=== PATIENT | female | born 1950 | race Caucasian/White ===

== ENCOUNTER 2018-11-10 04:55 | Inpatient (IN) ==
--- NOTE | 2018-10-19 15:24 | Anesthesiology Consultation ---
Date of Service October 19, 2018 Assessment & Plan (1) Encounter for pre-operative examination: Patient is extremely apprehensive regarding spinal anesthesia. She had a traumatic experience with RUL lobectomy in [place] and appears to have significant PTSD from this event. At her [facility] appt we thoroughly discussed both general and neuraxial anesthesia. The patient expressed understanding, and would like to discuss with anesthesia further AM DOS, but will likely opt for general anesthesia. PENDING CHEST CT 11/03 (for abnormal CXR) Chart Review Chart Review: Acceptable Risk for Surgery (pending chest CT 11/03) and Patient seen in Pre Admission Testing Teaching & Discussion Instructed NPO after midnight before surgery, except medications with 15 cc of water. Medication instructions provided according to the [facility] guidelines. History Surgery Operation Date: 11/10/18 12:30 Proposed Procedures p Right Total Hip Arthroplasty - Yevgeniy Ellsworth MD Height/Weight Height: 5 ft 3 in Weight: 66 kg Allergies Allergy/AdvReac Type Severity Reaction Status Date / Time Sulfa (Sulfonamide AdvReac Vomiting Verified 10/19/18 10:38 Antibiotics) Medications Home Medications Medication Instructions Recorded Confirmed Last Taken levothyroxine 50 mcg PO QAM 10/19/18 10/19/18 Unknown Past Medical History Medical History Degenerative joint disease of right hip History of lung cancer DX 2012 - S/P SX, CHEMO/RADIATION Hypothyroidism Recurrent carcinoma of lung 2014--chemo + XRT 2016 --Obdivo x 1 year CURRENTLY IN REMISSION Exercise / Class Metabolic Activity II 4-5 Yardwork/Stairs/Walk up hill (Walks ~ 1 mils daily, has 2 [employer] collies to care for, swims weekly.) Past Surgical History Surgical History History of colonoscopy History of esophagogastroduodenoscopy (EGD) History of tonsillectomy History of tubal ligation Status post bronchoscopy with biopsy Status post partial lobectomy of lung RUL Past Anesthesia History No Hx of Anesthesia Complications Pt had very traumatic experience with epidural for post-op pain control at [place] after lobectomy--she was not aware she would ahve one, and panicked upon waking in ICU unable to feel from chest down. PT CLEARLY VERY ANXIOUS, may have some degree of PTSD regarding the event. History of PONV No Hx of PONV and No Hx of Motion Sickness Social History Smoking Status: Former smoker tobacco type: cigarettes Do You Dip or Chew Tobacco: No Smoking End Date: QUIT 2012 Hx Alcohol Use: No Hx Substance Use: No substance use type: does not use Review of Systems Pt denies any recent chest pain, shortness of breath, palpitations, cough, fever or URI. Physical Exam Vital Signs BP: 144/81 (pt is visibly extremely anxious) P: 67bpm SPO2: 98% RA T: 98.2 F R: 16 Constitutional Extremely anxious and tearful when discussing anesthesia options. ENMT Mouth: + dentures (full upper, partial lower); no chipped teeth and no loose teeth Thyromental Distance: > or= 3.5 Finger Breadths (3.5) Mallampati Class: I Neck normal visual inspection; neck extension not limited Respiratory normal respiratory effort Auscultation: lungs clear to auscultation bilaterally and + breath sounds absent (RUL) Cardiovascular Rate/Rhythm: regular rate and regular rhythm Heart Sounds: no murmur Vessels: no carotid bruit Extremities: no edema Testing Laboratory Results PT 10.6 Seconds (9.0-12.0) 10/19/18 15:45 INR 1.0 (0.9-1.1) 10/19/18 15:45 APTT 27.0 Seconds (21.0-31.0) 10/19/18 15:45 Blood Type O Positive 10/19/18 15:45 Antibody Screen NEGATIVE 10/19/18 15:45 09/21/18 WBC: 7.02 H/H: 13.5/43.9 PLATELETS: 191 SODIUM: 143 POTASSIUM: 4.3 CHLORIDE: 111 CO2: 21 BUN: 24 CREATININE: 1.2 GLUCOSE: 70 Electrocardiogram Date: 10/19/18 Findings: + NSR @ (63) Chest X-Ray Date: 07/23/18 Comparison: CXR 04/17/[address] chest 06/19/18 Stable appearance of the right lung status post right upper lobectomy with unchanged scarring in the right lung. There is an unchanged right suprahilar opacity. Again noted is patchy opacity in the periphery of the right upper lung field. No significant pleural effusion. Cardiomediastinal silhouette is stable and the pulmonary vasculature is within normal limits. No acute osseous finding.
--- NOTE | 2018-10-19 15:35 | PAT Medication Instructions ---
Medication Instructions Date of Service October 19, 2018 Home Medications levothyroxine 50 mcg PO QAM Take morning of surgery With a small sip of water, OTHERWISE NOTHING TO EAT OR DRINK AFTER MIDNIGHT: levothyroxine 50 mcg PO QAM Other Notes If you have any questions please call us at [phone] or [phone] or [phone] or [phone]
[2018-10-19 16:42] LABS: Prothrombin Time 10.6 Seconds (9.0-12.0)
--- NOTE | 2018-11-06 11:26 | History and Physical Report ---
DATE OF ADMISSION: 11/10/2018 CHIEF COMPLAINT: Bilateral hip pain, right side greater than left. HISTORY OF PRESENT ILLNESS: A 68-year-old white female who presents on a referral from my partner, Dr. Nowak, for surgical treatment of her hips. She got a long history of lower extremity pain and discomfort, right side greater than left. No known injury. She saw Dr. Nowak recently who diagnosed her with advanced hip arthritis. She describes thigh pain, groin pain and knee pain. She is having more and more difficulty getting around due to her discomfort. It is affecting her quality of life. Her walking tolerance is a couple of blocks. She has difficulty putting her shoes and socks on and even bending over. She would like to proceed with surgical treatment. PAST MEDICAL HISTORY: Significant for: 1. Hypothyroidism. 2. History of lung cancer, status post treatment x3 without recurrence. PAST SURGICAL HISTORY: Includes: 1. Tonsillectomy. 2. Right partial lung removal in 2012. ALLERGIES: SULFA. CURRENT MEDICATIONS: Levothyroxine 50 mcg a day. SOCIAL HISTORY: A 68-year-old female. She is . She is from [place]. Does not smoke. No significant alcohol intake. FAMILY HISTORY: Noncontributory. REVIEW OF HISTORY: Negative for diabetes, neurologic problem, vascular problem, bleeding disorders. She does have this history of lung cancer, in remission. Denies any current chest pain or shortness of breath. No history of DVT or PE. PHYSICAL EXAMINATION: GENERAL: Shows a pleasant, middle-aged female. Looks to be in good health. HEENT: Benign. NECK: Supple, no lymphadenopathy. LUNGS: Clear to auscultation. HEART: Has regular rate and rhythm. ABDOMEN: Soft, nontender, nondistended. EXTREMITIES: Grossly neurovascularly intact except as follows: Examination of the right leg reveals the patient ambulates with a significantly antalgic gait. She clearly limps on this right side. She is about 1 cm short on the right side compared to the left. Hip motion is limited with internal rotation to neutral, external rotation to 25 degrees. She has got pain with internal rotation. Negative straight leg raise. X-RAYS: X-rays of the pelvis and right hip were reviewed. She has advanced right hip DJD. She has got significant arthritis and deformity of her acetabulum and flattening of her femoral head and subluxation of the femoral head. She got similar, but less severe disease on the left side. X-rays of the right knee reveal fairly mild DJD. ASSESSMENT: A 68-year-old white female with bilateral lower extremity pain with advanced hip arthritis, right side greater than the left. She has become more debilitating and she is having trouble getting around. She would like to proceed with surgical treatment. PLAN: We will take her to the operating room and do a right total hip replacement. The risks and benefits of this procedure were explained to the patient including but not limited to DVT, PE, , infection, neurological injury, vascular injury, bleeding problem, pain, limited range of motion, stiffness, failure to relieve her symptoms, incomplete relief of symptoms, need for further surgery in the future, fracture, leg length inequality, nerve palsy, dislocation, etc. The patient understands and desires to proceed. Informed consent was obtained. We will have to have some special instruments available due to her dysplasia and deformity. We will plan on using the Corail system, but we need to have the DePuy/Tuan and Tuan S-ROM system available in case she has got too advanced dysplasia to use a standard stem. As far as discharge plans, she is planning to be discharged to home. Her creatinine is on the upper level of normal, we will have to be careful with any NSAIDs. As far as discharge plans, she is planning to be discharged to home using [facility] home health program.
[2018-11-10] MEDS ORDERED: CEFAZOLIN 2000MG 2,000 MG/15 ML SYR IV SCH (06:00)
[2018-11-10] MEDS ORDERED: TRANEXAMIC ACID 1,000 MG **IV Pre-op IV SCH (06:00)
[2018-11-10] MEDS ORDERED: LR 60ML/HR IV SCH (06:00)
[2018-11-10] MEDS ORDERED: ACETAMINOPHEN 500 MG TAB PO SCH (06:00)
[2018-11-10] MEDS ORDERED: SCOPOLAMINE 1.5 MG TDSY TD SCH (06:00)
[2018-11-10] MEDS ORDERED: GABAPENTIN 300 MG CAP PO SCH (06:00)
[2018-11-10] MEDS ORDERED: FAMOTIDINE 20 MG TAB PO SCH (06:00)
[2018-11-10] MEDS ORDERED: LR 15ML/HR IV SCH (06:00)
[2018-11-10] MEDS ORDERED: METOCLOPRAMIDE HCL 10 MG TABLET PO SCH (06:00)
[2018-11-10] MEDS ORDERED: MIDAZOLAM HCL 1 MG/ML 2ML VIAL ONE (06:19)
[2018-11-10] MEDS ORDERED: fentaNYL citrate 100 MCG/2 ML VIAL ONE (06:20)
[2018-11-10] MEDS ORDERED: ONDANSETRON INJ 2 MG/ML 2 ML VIAL ONE (06:23)
[2018-11-10] MEDS ORDERED: PROPOFOL IV EMULSION 10 MG/ML 20 ML VIAL IV ONE ×2 (06:23→10:50)
[2018-11-10] MEDS ORDERED: BUPIVACAINE 0.5 % 5 MG/1 ML PF 10ML VIAL ONE (06:34)
[2018-11-10] MEDS ORDERED: BACITRACIN INJ 50,000 UNIT VIAL ONE (06:47)
[2018-11-10] MEDS ORDERED: BUPIVACAINE/EPINEPHRINE 0.5% MPF 1:200,000 30 ML VIAL ONE (06:47)
--- NOTE | 2018-11-10 06:54 | History & Physical Bridge Note ---
Date of Service November 10, 2018 History & Physical Bridge Note I have examined the patient, reviewed the History & Physical and in the interval since the performance of the History & Physical I have noted the following changes of clinical significance: no changes noted
[2018-11-10] MEDS ORDERED: ePHEDrine sulfate 50 MG/ML AMP IV PRN (08:07)
[2018-11-10] MEDS ORDERED: ATROPINE SULFATE 0.1 MG/ML 10ML SYR IV PRN (08:07)
[2018-11-10] MEDS ORDERED: fentaNYL citrate 100 MCG/2 ML VIAL IV PRN (08:07)
[2018-11-10] MEDS ORDERED: ONDANSETRON INJ 2 MG/ML 2 ML VIAL IV PRN ×2 (08:07→09:42)
--- NOTE | 2018-11-10 08:31 | Post Operative Brief Note ---
PG Immediate Post Op with CF Date of Surgery November 10, 2018 Pre & Post Diagnosis Operation Date: 11/10/18 07:00 Pre-Op Diagnosis: Right Hip Advanced Degenerative Joint Disease Post-Op Diagnosis: Right Hip Advanced Degenerative Joint Disease Procedure Operation Date: 11/10/18 07:00 Actual Procedures p Right Total Hip Arthroplasty--Uncemented(Right) - Yevgeniy Ellsworth MD Surgeon Yevgeniy Ellsworth MD Distribution Sales Representative Ronald, PAC Estimated Blood Loss 200 Findings Consistent with Post-Op Diagnosis Fluids 1400 cc Specimens Specimen Description: A. Right Femoral Head Drains Perez Catheter (A 16 [place] perez catheter was inserted by MICAH Nugent, without difficulty, clear yellow urine obtained, output to be monitored by Anesthesia.) Anesthesia Type Spinal MAC Complications none Disposition Accompanied Patient To Recovery: Yes Disposition: Recovery Room
--- NOTE | 2018-11-10 08:58 | XRay Report ---
XR hip 1V RT w pelvis CLINICAL HISTORY: 68 years-old Female presenting with IN PACU - A/P PELVIS and LATERAL HIP . TECHNIQUE: Single frontal view of the pelvis and crosstable lateral view of the right hip were obtain ed. COMPARISON: 10/14/2018. FINDINGS: There has been interval total right hip arthroplasty. Expected soft tissue emphysema with overlying s kin anjelica in the lateral proximal right thigh. Severe degenerative changes of the left hip, which r emains congruent. The bony pelvis is intact apart from postsurgical change. No periprosthetic fractur e or malalignment. Possible underlying osteopenia. Atherosclerosis. IMPRESSION: 1. Expected postsurgical appearance status post total right hip arthroplasty. 2. Severe degenerative changes of the left hip. Electronically signed by: Rajendra Munoz M.D. 11/10/2018 8:57 AM
--- NOTE | 2018-11-10 09:29 | Operative Report ---
DATE OF OPERATION: 11/10/2018 SURGEON: Yevgeniy Ellsworth MD BURLAPPER: MICAH Ca PREOPERATIVE DIAGNOSIS: Right hip degenerative joint disease. POSTOPERATIVE DIAGNOSIS: Right hip degenerative joint disease. PROCEDURE PERFORMED: Right uncemented ceramic on highly cross-linked polyethylene total hip arthroplasty. COMPLICATIONS: None. ESTIMATED BLOOD LOSS: 200 mL FLUID REPLACEMENT: 1400 mL crystalloid fluid replacement. ANESTHESIA: Spinal. DRAINS: None. SPECIMENS: Right femoral head sent for pathology. OPERATIVE INDICATIONS: The patient is a 68-year-old female with a significant history of lung cancer in the past, now in remission. She had a long history of bilateral lower extremity pain and discomfort, right side greater than left. She has been through extensive conservative care and over time has shown to have severe hip arthritis. It was markedly limiting her ability to maintain any active lifestyle. She elected to proceed with total hip arthroplasty. OPERATIVE FINDINGS: Operative findings revealed advanced right hip DJD. She had extensive erosive and degenerative and destructive changes of her femoral head. She had a large medial osteophyte. She had extensive synovitis and cystic changes of the femoral head and acetabulum. OPERATIVE IMPLANTS: Operative implants consisted of: 1. Biomet G7 size 54 mm acetabular shell. 2. A 6.5 cancellous acetabular screws, 1 at 35 mm in length and 1 at 20 mm in length. 3. An apex hole eliminator. 4. A highly cross-linked polyethylene liner with a 54 mm outer diameter and 36 mm inner diameter. 5. DePuy Corail size 11 KLA femoral stem. 6. A +1.5/36 mm ceramic articular ball. OPERATIVE PROCEDURE: The patient was taken to the operating room, identified and placed on the operating table in supine position. All contact areas were appropriately padded. IV antibiotics were provided by anesthesia team. Spinal anesthetic had been implemented in the holding area. Jules catheter was placed in sterile fashion. The patient was then placed in the left lateral decubitus position. Axillary roll was placed. Stlberg hip positioner was used for positioning. The right hip and leg were then prepped and draped in the usual sterile fashion. A posterolateral approach to the right hip was then performed through a curvilinear incision centered over the greater trochanter. Sharp dissection was carried out through the subcutaneous tissue down to the level of the IT band and gluteal fascia. The IT band and gluteal fascia were incised longitudinally in line with skin incision. The underlying greater trochanteric bursa was excised. The piriformis and external rotators were tagged and taken off the posterior aspect of the hip joint capsule. Great care was taken throughout the procedure to protect the sciatic nerve at all times. Posterior capsulotomy was then performed leaving a large flap for later repair. Hip was internally rotated and dislocated. Femoral neck osteotomy cut was made with a final cut about 5 mm above the lesser trochanter. Femoral head was removed and sent for pathology. The femur was retracted anteriorly. Attention was then drawn to the acetabulum. The acetabulum labrum was excised. I then had to remove the medial osteophyte. I then reamed beginning with a size 47 progressing up to 53. A 54 mm Biomet G7 acetabular shell was then placed in about 40 degrees of lateral opening and 20-25 degrees of anteversion. It was fixed with two 6.5 cancellous acetabular screws. A large anterior osteophyte was removed. I did bone graft the acetabulum as she had quite a bit of cyst in there. We did curette out the cyst and bone grafted it with the reamings. A trial liner was placed. Attention was then drawn to the femur. The proximal femur was entered with a cookie cutter followed by canal finder. I broached beginning with a size 8 and progressing up to 11. We got good fit with 11. A calcar reamer was used to smoothen off the calcar. I then trialed the hip and the +1.5 articular ball seemed to recreate soft tissue tension appropriately. The hip was fully stable in full extension and external rotation and flexion to 90 degrees, internal rotation to over [address] We elected to place these implants. I thought her leg lengths were equal. All trial implants were removed. An apex hole eliminator was placed. A highly cross-linked polyethylene liner was placed. A DePuy Corail size 11 KLA femoral stem was impacted in position. A +1.5/36 mm ceramic articular ball was placed. Hip was located and once again found to be stable. Attention was then drawn toward closing. The wound was irrigated with copious amounts of pulsatile lavage solution. I injected locally with 60 mL of 0.5% Marcaine with epinephrine. The posterior capsule and external rotators were then repaired through drill holes in the posterior trochanter with #2 Ti-Cron suture. The IT band and gluteal fascia were then closed with #1 PDS suture in running fashion. The subcutaneous tissue was then closed with 2 layers with the deep layer with #1 Vicryl suture and subcutaneous tissue with 2-0 Dexon suture in a buried interrupted fashion. The skin was closed with skin anjelica. Leg was then cleaned, dried and a sterile dressing of Xeroform, 4 x 4, sterile ABD pad, and foam tape was applied. The patient was then transferred to the recovery room in stable condition. The patient tolerated the procedure well with no complication. All needle and sponge counts were correct at the end of the operation. I attest to the content of the Intraoperative Record and any orders documented therein. Any exception s are noted below.
[2018-11-10] MEDS ORDERED: ALUMINUM/MAGNESIUM SUSP 30 ML UDC PO PRN (09:42)
[2018-11-10] MEDS ORDERED: TRAMADOL HCL 50 MG TABLET PO PRN (09:42)
[2018-11-10] MEDS ORDERED: BISACODYL 10 MG SUPP PR PRN (09:42)
[2018-11-10] MEDS ORDERED: METOCLOPRAMIDE HCL INJ 5 MG/ML 2 ML VIAL IV PRN (09:42)
[2018-11-10] MEDS ORDERED: NALOXONE HCL 0.4 MG/1 ML VIAL/CARP IV PRN (09:42)
[2018-11-10] MEDS ORDERED: MAGNESIUM HYDROXIDE SUSP 30 ML UDC PO PRN (09:42)
[2018-11-10] MEDS ORDERED: HYDROmorphone INJ 0.5 MG/0.5 ML SYR IV PRN (09:42)
--- NOTE | 2018-11-10 10:42 | Anesthesiology Progress Note ---
Date of Service November 10, 2018 Anesthesia Post Procedure Vital Signs Vital Signs: Temp Pulse Pulse Resp BP BP Pulse Ox 11/10/18 10:33 36.9 C 81 18 109/68 97 11/10/18 10:03 18 117/73 11/10/18 09:20 75 12 119/68 97 11/10/18 09:10 36.4 C L 77 15 120/65 98 11/10/18 09:00 89 20 121/40 L 95 11/10/18 08:50 85 18 100/87 99 11/10/18 08:40 74 15 121/57 L 100 11/10/18 08:33 36.4 C L 79 15 114/62 100 11/10/18 05:54 37 C 80 20 123/87 100 Pain Intensity Right Hip: Pain Intensity: 7 Transfer of Care Handoff Completed per policy Notes Mental Status: alert / awake / arousable and participated in evaluation Patient Amnestic to Procedure: Yes Nausea / Vomiting: adequately controlled Pain: adequately controlled Airway Patency, RR, SpO2: stable & adequate BP & HR: stable & adequate Hydration State: stable & adequate Neuraxial Anesthesia: was administered and sensory block is resolving Anesthetic Complications: no major complications apparent and Pt Satisfied with anesthetic care
[2018-11-10] MEDS: DOCUSATE SODIUM 100 MG CAP PO SCH ×2 (11:18→22:00)
[2018-11-10] MEDS: KETOROLAC TROMETHAMINE 15 MG/ML VIAL IV SCH ×2 (11:19→18:30)
[2018-11-10] MEDS: ASPIRIN 81 MG ECTAB PO SCH ×2 (11:19→22:00)
[2018-11-10] MEDS: MULTIVITAMIN TAB PO SCH (11:19)
[2018-11-10] MEDS: CEFAZOLIN 1000MG 1,000 MG/7.5 ML SYR IV SCH ×2 (14:23→22:01)
[2018-11-10] MEDS: ACETAMINOPHEN 500 MG TAB PO SCH ×2 (14:23→21:58)
[2018-11-10] MEDS: SODIUM CHLORIDE 0.9% 1000ML 1,000 ML IV SCH (14:26)
[2018-11-10] MEDS ORDERED: TRANEXAMIC ACID 1,000 MG in 0.9 % SODIUM CHLORIDE 100 ML IV SCH (14:30)
[2018-11-10] MEDS: CHECK SCOPOLAMINE PATCH PLACEMENT SCH (15:40)
[2018-11-10] MEDS: FERROUS GLUCONATE 324 MG TAB PO SCH (18:30)
[2018-11-10] MEDS: ASCORBIC ACID 500 MG TAB PO SCH (18:31)
--- NOTE | 2018-11-10 19:12 | Progress Note ---
DATE: 11/10/2018 SUBJECTIVE: A 68-year-old white female postop from a right hip replacement. She is doing well. Not really having any pain yet. No chest pain or shortness of breath. Not feeling dizzy or lightheaded. OBJECTIVE: VITAL SIGNS: Temperature 36.6. Vital signs stable. GENERAL: Shows a pleasant, middle-aged female. She is sitting up in her bedside chair, looks comfortable. LUNGS: Clear to auscultation. HEART: Regular rate and rhythm. ABDOMEN: Soft, nontender, nondistended. EXTREMITIES: Grossly neurovascularly intact except as follows: Examination of the right lower extremity reveals the leg lengths to be equal. Dressing is clean, dry and intact. Thigh is soft and supple. She is neurologically intact. She can dorsiflex and plantarflex her foot appropriately. X-RAYS: X-rays of the right hip from recovery room were reviewed. It shows right uncemented total hip replacement. Components looked to be in good position. No signs of problems. ASSESSMENT: A 68-year-old white female postoperative from a right hip replacement, doing well. Pain is controlled. Hip is located. She is neurologically intact. PLAN: 1. DVT prophylaxis including thigh-high TEDs, SCDs, and aspirin twice a day. 2. PT/OT. Weight bear as tolerated. Right total hip protocol. 3. Pain control, doing well with current pain regimen. 4. IV antibiotics x24 hours. 5. Disposition: She is planning to be discharged to home likely with some home health once adequately recovered and medically stable.
[2018-11-10] MEDS ORDERED: SENNA 8.6 MG TAB PO SCH (21:00)
[2018-11-11] MEDS: KETOROLAC TROMETHAMINE 15 MG/ML VIAL IV SCH ×3 (00:04→11:42)
[2018-11-11] MEDS: CHECK SCOPOLAMINE PATCH PLACEMENT SCH (00:05)
[2018-11-11] MEDS: SODIUM CHLORIDE 0.9% 1000ML 1,000 ML IV SCH ×2 (00:12→05:46)
[2018-11-11] MEDS: ACETAMINOPHEN 500 MG TAB PO SCH ×2 (05:41→13:09)
[2018-11-11 06:27] LABS: Basophils # (auto) 0.02 K/uL (0-0.2); Basophils % (auto) 0.3 %; Eosinophils # (auto) 0.09 K/uL (0-0.5); Eosinophils % (auto) 1.1 %; Hematocrit (blood only) 32.1 % (37-47); Hemoglobin 10.5 g/dL (12.0-16.0); Immature Granulocytes # (auto) 0.01 K/uL (0.00-0.02); Immature Granulocytes % (auto) 0.1 %; Lymphocytes # (auto) 0.85 K/uL (1.2-3.4); Lymphocytes % (auto) 10.7 %; Mean Corpuscular Hgb Conc 32.7 g/dL (32-36); Mean Corpuscular Volume 88.4 fL (80-100); Mean Platelet Volume 9.4 fL (7.4-10.4); Monocytes # (auto) 0.85 K/uL (0.11-0.59); Monocytes % (auto) 10.7 %; Neutrophils # (auto) 6.14 K/uL (1.4-6.5); Neutrophils % (auto) 77.1 %; Platelet Count 149 K/uL (130-400); RDW Coefficient of Variation 14.3 % (11.5-14.5); RDW Standard Deviation 46.5 fL (36.4-46.3); Red Blood Count 3.63 M/uL (4.2-5.4); White Blood Count 7.96 K/uL (4.8-10.8)
[2018-11-11] MEDS ORDERED: LEVOTHYROXINE SODIUM 50 MCG TABLET PO SCH (06:30)
[2018-11-11 07:04] LABS: BUN Creatinine Ratio 14.5 (10-20); Calcium 8.4 mg/dl (8.5-10.1); Creatinine Clr Calc Pharmacy 37.3 ml/min; Est GFR (African American) 48.4; Est GFR (Non-African American) 41.7; Potassium 4.1 mmol/L (3.5-5.1)
--- NOTE | 2018-11-11 07:30 | Anesthesiology Progress Note ---
Date of Service November 11, 2018 Anesthesia Post Procedure Vital Signs Vital Signs: Temp Pulse Pulse Resp BP BP Pulse Ox 11/11/18 07:28 37.3 C 86 18 106/68 96 11/11/18 03:46 36.9 C 78 16 109/68 97 11/10/18 22:44 37.0 C 82 16 118/74 96 11/10/18 14:58 36.6 C 76 17 134/83 98 11/10/18 12:30 74 18 133/79 100 11/10/18 11:27 36.3 C L 78 16 146/74 H 98 11/10/18 10:33 36.9 C 81 18 109/68 97 11/10/18 10:03 18 117/73 11/10/18 09:30 36.6 C 76 18 105/69 92 11/10/18 09:20 75 12 119/68 97 11/10/18 09:10 36.4 C L 77 15 120/65 98 11/10/18 09:00 89 20 121/40 L 95 11/10/18 08:50 85 18 100/87 99 11/10/18 08:40 74 15 121/57 L 100 11/10/18 08:33 36.4 C L 79 15 114/62 100 Pain Intensity Right Hip: Pain Intensity: 0 Notes Mental Status: alert / awake / arousable and participated in evaluation Patient Amnestic to Procedure: Yes Nausea / Vomiting: adequately controlled Pain: adequately controlled Airway Patency, RR, SpO2: stable & adequate BP & HR: stable & adequate Hydration State: stable & adequate Neuraxial Anesthesia: was administered and sensory block resolved Anesthetic Complications: no major complications apparent and Pt Satisfied with anesthetic care
[2018-11-11] MEDS: MULTIVITAMIN TAB PO SCH (08:43)
[2018-11-11] MEDS: ASPIRIN 81 MG ECTAB PO SCH (08:43)
[2018-11-11] MEDS: ASCORBIC ACID 500 MG TAB PO SCH (08:43)
[2018-11-11] MEDS: DOCUSATE SODIUM 100 MG CAP PO SCH (08:44)
[2018-11-11] MEDS: FERROUS GLUCONATE 324 MG TAB PO SCH (08:44)
--- NOTE | 2018-11-11 15:21 | Progress Note ---
DATE: 11/11/2018 SUBJECTIVE: A 68-year-old white female postop day 1 from right hip replacement. She is doing well. Pain is controlled. No chest pain or shortness of breath. She is really adamant about going home. OBJECTIVE: VITAL SIGNS: Temperature 37.3. Vital signs stable. GENERAL: Physical examination shows a pleasant, middle-aged female. She is sitting up at her bedside chair, looks comfortable. EXTREMITIES: Examination of the right hip reveals the dressing to be clean, dry and intact. Leg lengths were equal. She can dorsiflex and plantarflex her foot appropriately. She is neurologically intact. LABORATORY DATA: Hemoglobin 10.5, hematocrit 32.1. Electrolytes are stable. ASSESSMENT: A 68-year-old white female postop day 1 from a right hip replacement, doing well. Pain is controlled. She is neurologically intact. PLAN: 1. DVT prophylaxis including thigh-high TEDs, SCDs, and aspirin twice a day. 2. PT/OT. Weight bear as tolerated. Right total hip protocol. 3. Pain control, doing well with current pain regimen. 4. Disposition: She is doing quite well clinically and pain is controlled. She is hoping to go home and she does well in therapy today. We will send her home. She is going to have home health. I will see her back in 2 weeks.
--- NOTE | 2018-11-16 23:32 | Discharge Summary ---
ADMITTING PHYSICIAN AND SURGEON: Dr. Yevgeniy Ellsworth. ADMITTING DIAGNOSIS: Right hip degenerative joint disease. SURGERY PERFORMED: Right total hip arthroplasty. SECONDARY DIAGNOSES: Hypothyroidism, history of lung cancer. CONSULTS: None obtained. HISTORY AND PHYSICAL EXAMINATION: Well documented in the patient's chart. HOSPITAL COURSE: The patient was admitted on 11/10/2018 and underwent total hip arthroplasty, tolerated the procedure well. There were no complications. She was transferred to the PACU postoperatively and later to the orthopedic floor for further care. She was given Ancef for antibiotic prophylaxis, MED stockings, SCDs and aspirin for DVT prophylaxis. Hemoglobin, hematocrit and vital signs were monitored during her hospital stay and remained stable. She did not require any blood transfusions. There were no complications. By postoperative day #1, she was tolerating a regular diet, pain was controlled with oral pain medicine. She was participating in physical therapy. Postop day #1, she was discharged home, set up with home health services. She was given printed discharge instructions as well as new prescriptions for extra strength Tylenol, aspirin and tramadol. Continue her home medicines. Continue physical therapy, weightbearing as tolerated, MED stockings, total hip precautions. Follow up approximately 2 weeks postop or sooner if there are any problems or concerns.
== END 2018-11-11 13:23 | disposition home health service (06) | DRG 470 ==
LOC: ASU 04:55 → 3E 08:34

== ENCOUNTER 2019-11-16 05:02 | Observation (INO) ==
--- NOTE | 2019-11-10 12:36 | PAT Medication Instructions ---
Medication Instructions Date of Service November 10, 2019 Home Medications Medication Instructions Recorded amoxicillin 500 mg tablet 2,000 mg PO ONCE #4 tab 09/28/19 levothyroxine 50 mcg PO QAM Take morning of surgery With a small sip of water, OTHERWISE NOTHING TO EAT OR DRINK AFTER MIDNIGHT: levothyroxine 50 mcg PO QAM Other Notes If you have any questions please call us at [phone] or [phone] or [phone] or [phone]
--- NOTE | 2019-11-11 09:28 | Anesthesiology Consultation ---
Date of Service November 11, 2019 Assessment & Plan (1) Encounter for pre-operative examination: COVID Status: As of 11/10 assessment, patient denies travel to endemic area, known exposure/sick contacts, or symptoms of COVID19. Patient instructed that they and their household members must follow strict social distancing guidelines, wear a mask in public and avoid travel for 14 days prior to surgery. Preoperative COVID19 testing completed 11/10, results NEGATIVE. Patient made awar e to self-isolate as much as possible between COVID testing and surgery. Chart Review Chart Review: Acceptable Risk for Surgery and Patient seen in Pre Admission Testing Teaching & Discussion Instructed NPO after midnight before surgery, except medications with 15 cc of water. Medication instructions provided according to the PAT guidelines. History Surgery Operation Date: 11/16/19 07:00 Proposed Procedures p Left Total Hip Arthroplasty - Yevgeniy Ellsworth MD Height/Weight Height: 5 ft 3 in Weight: 69.9 kg Allergies Allergy/AdvReac Type Severity Reaction Status Date / Time Sulfa (Sulfonamide Allergy Intermediate PROJECTIVE Verified 11/10/19 11:29 Antibiotics) VOMITTING AND RASH Medications Home Medications Medication Instructions Recorded Confirmed Last Taken levothyroxine 50 mcg PO QAM 10/19/18 11/10/19 11/10/18 04:00 amoxicillin 500 mg tablet 2,000 mg PO ONCE #4 tab 09/28/19 11/10/19 Unknown Past Medical History Medical History Degenerative joint disease History of lung cancer DX 2012 - S/P SX, CHEMO/RADIATION Hypothyroidism Recurrent carcinoma of lung 2014--chemo + XRT 2016 --Obdivo x 1 year CURRENTLY IN REMISSION Exercise / Class Metabolic Activity III < 4 Walking/Shop/Light housework (Some RAMSAY with 1 FOS due to lung cancer hx, denies any CP, uses cane for ambulation) Past Family History Family History (Updated 11/10/19 @ 11:35 by Melia Madrid RN) Other No significant family history Past Surgical History Surgical History H/O needle biopsy LUNG BIOPSY History of anesthesia reaction DELAYED MOVEMENT WITH EPIDURAL USED WITH LOBECTOMY History of colonoscopy History of esophagogastroduodenoscopy (EGD) History of tonsillectomy History of tooth extraction History of total hip arthroplasty RT History of tubal ligation Status post bronchoscopy with biopsy Status post partial lobectomy of lung RUL 2013 Past Anesthesia History No Family Hx of Anesthesia Complications and Other Reports she had an epidural for her lobectomy at [facility] and was terrified on w aking and not being able to move her legs. No issue with SAB for R DIXIE. History of PONV No Hx of PONV and No Hx of Motion Sickness Social History Smoking Status: Former smoker tobacco type: cigarettes Do You Dip or Chew Tobacco: No Smoking End Date: 2012 Hx Alcohol Use: No Hx Substance Use: No substance use type: does not use Review of Systems Pt denies any recent chest pain, shortness of breath, palpitations, cough, fever, URI, or uncontrolled acid reflux. Physical Exam Vital Signs BP: 149/73 P: 73bpm SPO2: 97% RA T: 97.7 F R: 14 ENMT Mouth: + dentures (full upper, partial lower); no chipped teeth and no loose teeth Thyromental Distance: > or= 3.5 Finger Breadths Mallampati Class: I Neck normal visual inspection; neck extension not limited Respiratory normal respiratory effort Auscultation: lungs clear to auscultation bilaterally Cardiovascular Rate/Rhythm: regular rate and regular rhythm Heart Sounds: no murmur Vessels: no carotid bruit Extremities: no edema Testing Laboratory Results 11/11/19 08:35 PT 10.7 Seconds (9.0-12.0) 11/11/19 08:35 INR 1.0 (0.9-1.1) 11/11/19 08:35 APTT 29.6 Seconds (21.0-31.0) 11/11/19 08:35 Blood Type O Positive 11/11/19 08:35 Antibody Screen NEGATIVE 11/11/19 08:35 10/29/19 WBC: 6.34 H/H: 12.7/40.1 PLATELETS: 200 Electrocardiogram Date: 11/11/19 Findings: + NSR @ (76bpm) Chest X-Ray Date: 11/11/19 COMPARISON STUDY: No previous studies for comparison. FINDINGS: Possible stress study to interpret the absence of prior images. Extensive parenchymal scarring right apex possibly on a postoperative basis. There is a history of a right upper lobectomy. Increased density right base nonspecific. This may be inflammatory and are nonspecific although a consolidation. Nodularity throughout the left hemithorax possibly on the basis of metastatic change versus chronic change. IMPRESSION: 1. Diffuse changes throughout both hemithoraces. This appears to be a comb ination of postoperative change, scarring, and possibly inflammatory or chronic scarring. Old films are considered mandatory as follow-up. *Radiologist notified that patient follows with [facility] and many old films can be obtained from their records. Lungs were CTA B/L on exam at [facility], pt had no acute complaints.
--- NOTE | 2019-11-11 10:29 | XRay Report ---
XR chest Pre-admission PA/Lat CLINICAL HISTORY: pat preoperative COMPARISON STUDY: No previous studies for comparison. FINDINGS: Possible stress study to interpret the absence of prior images. Extensive parenchymal scarring right apex possibly on a postoperative basis. There is a history of a right upper lobectomy. Increased density right base nonspecific. This may be inflammatory and are nonspecific although a con solidation. Nodularity throughout the left hemithorax possibly on the basis of metastatic change versus chronic c hange. IMPRESSION: 1. Diffuse changes throughout both hemithoraces. This appears to be a combination of postoperative ch dayo, scarring, and possibly inflammatory or chronic scarring. Old films are considered mandatory as follow-up. ACT 112: Negative or not required by law. The above report was generated using voice recognition software. It may contain grammatical, syntax or spelling errors. Electronically signed by: Eze Dumas M.D. 11/11/2019 10:27 AM
[2019-11-11 10:33] LABS: Partial Thromboplastin Ratio 1.1; Partial Thromboplastin Time 29.6 Seconds (21.0-31.0); Prothrombin Time 10.7 Seconds (9.0-12.0)
[2019-11-11 11:02] LABS: BUN Creatinine Ratio 16.9 (10-20); C Reactive Protein 2.08 mg/dl (0-0.29); Creatinine Clr Calc Pharmacy 43.3 ml/min; Est GFR (African American) 56.2; Est GFR (Non-African American) 48.5; Potassium 4.7 mmol/L (3.5-5.1)
--- NOTE | 2019-11-12 06:24 | Electrocardiogram Report ---
Test Reason : Blood Pressure : / mmHG Vent. Rate : 076 BPM Atrial Rate : 076 BPM P-R Int : 196 ms QRS Dur : 084 ms QT Int : 360 ms P-R-T Axes : 069 039 067 degrees QTc Int : 405 ms Normal sinus rhythm Normal ECG When compared with ECG of 19-OCT-2018 15:43, No significant change was found Confirmed by Maury Arrieta ([id number]) on 11/12/2019 6:24:34 AM Referred By: Yevgeniy Ellsworth Confirmed By:Maury Arrieta
[2019-11-16] MEDS ORDERED: METOCLOPRAMIDE HCL 10 MG TABLET PO SCH (06:00)
[2019-11-16] MEDS ORDERED: LR 60ML/HR IV SCH (06:00)
[2019-11-16] MEDS ORDERED: TRANEXAMIC ACID 1,000 MG **IV Pre-op IV SCH (06:00)
[2019-11-16] MEDS ORDERED: GABAPENTIN 300 MG CAP PO SCH (06:00)
[2019-11-16] MEDS ORDERED: FAMOTIDINE 20 MG TAB PO SCH (06:00)
[2019-11-16] MEDS ORDERED: ACETAMINOPHEN 500 MG TAB PO SCH (06:00)
[2019-11-16] MEDS ORDERED: CEFAZOLIN 2000MG 2,000 MG/15 ML SYR IV SCH (06:00)
[2019-11-16] MEDS ORDERED: LR 500ML BOLUS, THEN 15ML/HR IV SCH (06:00)
[2019-11-16] MEDS ORDERED: PROPOFOL IV EMULSION 10 MG/ML 20 ML VIAL IV ONE ×2 (06:22→07:44)
[2019-11-16] MEDS ORDERED: MoRPHine SULFATE PF 1 MG/ML 10 ML AMP/VIAL ONE (06:22)
[2019-11-16] MEDS ORDERED: MIDAZOLAM HCL 1 MG/ML 2ML VIAL ONE (06:22)
[2019-11-16] MEDS ORDERED: fentaNYL citrate 100 MCG/2 ML VIAL ONE (06:22)
[2019-11-16] MEDS ORDERED: BUPIVACAINE 0.5 % 5 MG/1 ML MPF 30ML VIAL ONE (06:27)
[2019-11-16] MEDS ORDERED: BACITRACIN INJ 50,000 UNIT VIAL ONE (06:27)
[2019-11-16] MEDS ORDERED: EPINEPHrine INJ 1 MG/ML AMP ONE (06:28)
[2019-11-16] MEDS ORDERED: BUPIVACAINE 0.5 % 5 MG/1 ML PF 10ML VIAL ONE (06:32)
--- NOTE | 2019-11-16 06:48 | History & Physical Bridge Note ---
Date of Service November 16, 2019 History & Physical Bridge Note I have examined the patient, reviewed the History & Physical and in the interval since the performance of the History & Physical I have noted the following changes of clinical significance: no changes noted
[2019-11-16] MEDS ORDERED: ePHEDrine sulfate 50 MG/ML SYR ONE (07:09)
[2019-11-16] MEDS ORDERED: PHENYLEPHRINE 100MCG/ML 5ML SYR ONE (07:09)
[2019-11-16] MEDS ORDERED: NALOXONE HCL 0.4 MG/1 ML VIAL/CARP IV PRN ×2 (08:26→11:00)
[2019-11-16] MEDS ORDERED: ONDANSETRON INJ 2 MG/ML 2 ML VIAL IV PRN ×2 (08:26→11:00)
[2019-11-16] MEDS ORDERED: PROMETHAZINE HCL 25 MG in SODIUM CHLORIDE 0.9% 50 ML IV PRN (08:26)
[2019-11-16] MEDS ORDERED: ATROPINE SULFATE 0.1 MG/ML 10ML SYR IV PRN (08:26)
[2019-11-16] MEDS ORDERED: MoRPHine SULFATE PF 1 MG/ML 10 ML AMP/VIAL INT SPINAL ONE (08:26)
[2019-11-16] MEDS ORDERED: LACTATED RINGER'S 500 ML IV PRN (08:26)
[2019-11-16] MEDS ORDERED: NALOXONE HCL 1 MG in SODIUM CHLORIDE 0.9% 1000ML 1,000 ML IV PRN (08:26)
[2019-11-16] MEDS ORDERED: DiphenhydrAMINE HCL 50 MG/ML VIAL IV PRN (08:26)
[2019-11-16] MEDS ORDERED: ePHEDrine sulfate 50 MG/ML AMP IV PRN ×2 (08:26)
[2019-11-16] MEDS ORDERED: NALOXONE HCL 0.08 MG in SYRINGE 1.8 ML IV PRN (08:26)
[2019-11-16] MEDS ORDERED: SODIUM CHLORIDE 0.9% 1000ML 1,000 ML IV SCH (08:30)
[2019-11-16] MEDS ORDERED: NO NARCOTICS OR SEDATIVES SCH (08:30)
--- NOTE | 2019-11-16 08:40 | Post Operative Brief Note ---
PG Immediate Post Op with CF Date of Surgery November 16, 2019 Pre & Post Diagnosis Operation Date: 11/16/19 07:00 Pre-Op Diagnosis: Left Hip Advanced Degenerative Joint Disease Post-Op Diagnosis: Left Hip Advanced Degenerative Joint Disease I identified the patient and participated in the time-out.: Yes Procedure Operation Date: 11/16/19 07:00 Actual Procedures p Left Total Hip Arthroplasty--Uncemented(Left) - Yevgeniy Ellsworth MD Surgeon Yevgeniy Ellsworth MD Student Life Coordinator Ronald, PAC Estimated Blood Loss 200 Findings Consistent with Post-Op Diagnosis Fluids 800 cc Specimens Specimen Description: A. Left Femoral Head Drains Jules Catheter Anesthesia Type Spinal MAC Complications none Disposition Accompanied Patient To Recovery: Yes Disposition: Recovery Room
--- NOTE | 2019-11-16 09:03 | XRay Report ---
XR hip 1V LT w pelvis HISTORY: 69 years-old Female IN PACU - A/P PELVIS and LATERAL HIP bilateral hip total joint arthrop lasties COMPARISON: Pelvis radiograph 12/28/2018 TECHNIQUE: AP view of the pelvis with crosstable lateral view of the left hip FINDINGS: Unchanged right hip total joint arthroplasty. Left hip total joint arthroplasty has been placed in th e interval and appears to be in satisfactory alignment. No acute fracture or retained foreign body. L ateral skin anjelica are noted along with expected postsurgical soft tissue swelling and deep tissue a ir. IMPRESSION: Left hip total joint arthroplasty with expected postoperative changes. ACT 112: Negative or not required by law. The above report was generated using voice recognition software. It may contain grammatical, syntax o r spelling errors. Electronically signed by: Fernando Luz M.D. 11/16/2019 9:02 AM
--- NOTE | 2019-11-16 10:06 | Anesthesiology Progress Note ---
Date of Service November 16, 2019 Anesthesia Post Procedure Vital Signs Vital Signs: Temp Pulse Pulse Resp BP BP Pulse Ox 11/16/19 09:35 80 15 101/67 94 11/16/19 09:25 84 13 93/65 L 94 11/16/19 09:20 36.3 C L 85 12 97/67 L 92 11/16/19 09:10 88 20 92/63 L 95 11/16/19 09:00 86 16 92/60 L 94 11/16/19 08:50 88 18 80/61 L 97 11/16/19 08:40 89 14 107/68 95 11/16/19 08:32 80 15 103/78 97 11/16/19 08:30 94 H 15 72/50 L 96 11/16/19 08:29 36.1 C L 97 H 16 72/47 L 96 11/16/19 05:37 36.5 C 90 20 160/88 H 96 Transfer of Care Handoff Completed per policy Notes Mental Status: alert / awake / arousable Patient Amnestic to Procedure: Yes Nausea / Vomiting: adequately controlled Pain: adequately controlled Airway Patency, RR, SpO2: stable & adequate BP & HR: stable & adequate Hydration State: stable & adequate Neuraxial Anesthesia: was administered and sensory block is resolving Anesthetic Complications: no major complications apparent
[2019-11-16] MEDS ORDERED: ALUMINUM/MAGNESIUM SUSP 30 ML UDC PO PRN (11:00)
[2019-11-16] MEDS ORDERED: MAGNESIUM HYDROXIDE SUSP 30 ML UDC PO PRN (11:00)
[2019-11-16] MEDS ORDERED: bisacodyL 10 MG SUPP PR PRN (11:00)
[2019-11-16] MEDS ORDERED: METOCLOPRAMIDE HCL INJ 5 MG/ML 2 ML VIAL IV PRN (11:00)
[2019-11-16] MEDS: DOCUSATE SODIUM 100 MG CAP PO SCH ×2 (11:35→20:15)
[2019-11-16] MEDS: SODIUM CHLORIDE 0.9% 1000ML 1,000 ML IV SCH ×2 (11:35→21:31)
[2019-11-16] MEDS: MULTIVITAMIN TAB PO SCH (11:36)
[2019-11-16] MEDS: KETOROLAC TROMETHAMINE 15 MG/ML VIAL IV SCH ×3 (11:40→21:33)
--- NOTE | 2019-11-16 13:01 | Operative Report ---
Post Operative Report Pre & Post Diagnosis Operation Date: 11/16/19 07:00 Pre-Op Diagnosis: Left Hip Advanced Degenerative Joint Disease Post-Op Diagnosis: Left Hip Advanced Degenerative Joint Disease I identified the patient and participated in the time-out.: Yes Procedure Operation Date: 11/16/19 07:00 Actual Procedures p Left Total Hip Arthroplasty--Uncemented(Left) - Yevgeniy Ellsworth MD Surgeon Yevgeniy Ellsworth MD Clerical Assistant Ronald, PAC Estimated Blood Loss 200 Findings Consistent with Post-Op Diagnosis .Operative findings revealed advanced left hip DJD. She had flattening and necrosis of the femoral head She had fairly large anterior acetabular osteophyte. Severe synovitis with extensive necrotic degenerative debris in the acetabulum. Fluids 800 cc. Specimens Left femoral head sent for pathology. Drains None. Anesthesia Type Spinal MAC Complications none Disposition Accompanied Patient To Recovery: Yes Disposition: Recovery Room Indications Patient is a 69-year-old female is had a history of hip problems in the past. She underwent a right hip replacement about a year ago is done remarkably well from this. Over the past year she is developed progressive increasing pain discomfort left hip. X-rays show progressive hip arthritis with collapse of the femoral head and extensive erosions. Patient elected proceed with surgical treatment. Description of Procedure Operative implants consist of: 1. Biomet size 52 mm G7 acetabular shell. 2. Orma eliminator. 3. 6.5 cancellus acetabular screws 1 of 35 mm length and 1 to 20 mm length. 3. Highly cross-linked polyethylene liner with a 52 mm outer diameter and 36 mm inner diameter. 5. Kellen Karaya size 11 KLA femoral stem. 6. +1.5/36 mm ceramic articular ball. The patient was taken to the operating room identified and placed on the operating table supine position protectors were properly padded. IV antibiotics arrived by anesthesia team. A spinal anesthetic had been provided in the holding area. A Jules catheter was placed in sterile fashion. The patient was then placed in the right lateral decubitus position. An axillary roll was placed. A Stulberg hip positioner was used for positioning. The left hip and leg were then prepped and draped in usual sterile fashion. A posterior lateral approach of the left hip was then performed to a curvilinear incision centered over the greater trochanter. Sharp dissection got through subcutaneous tissue down to level the IT band gluteal fascia. The IT band gluteal fascia incised longitudinally in line with skin incision. The underlying greater bursa was excised. There was quite a bit of fat around her vastus lateralis and in the deeper tissues. The piriformis and external rotators along with the posterior capsule were then released from the posterior aspect of the hip joint as a single layer. Great care was taken throughout the procedure protect the sciatic nerve at all times. Hip was internally rotated and dislocated. Femoral neck osteotomy cut was made with Final Cut about 7 mm above the lesser trochanter. Femoral head was removed and sent for pathology. The femur was retracted anteriorly. Attention drawn the acetabulum. The acetabular labrum was excised. We did spend quite a bit of time get rid of all the synovium and necrotic debris in the acetabulum. The pulmonary fat was excised. Sequential reaming the acetabular was then performed begin with a size 45 and progressing up to 51. I did reamed slightly with a 52 reamer. A 52 mm Biomet G7 acetabular shell was then placed in about 40 degrees lateral opening and 20 degrees of anteversion. It was fixed with two 6.5 cancellus acetabular screws. A trial liner was placed. An anterior osteophyte was removed. Attention drawn the femur. The proximal femur was entered with a cookie-cutter followed by canal finder. I then broached begin the size 8 and progressing up to 11. We got good fit at 11. Then trialed the hip. The hip was fully stable, soft tissue tension was appropriate and I felt leg lengths were pretty equal. We elect to place these implants. All trial implants were removed. An apex hole limited was placed. Highly cross-linked polyethylene liner was placed. A [place] KLA size 11 femoral stem was impacted in position. +1.5/36 mm ceramic articular ball was placed. Hip was located once again found to be stable. Attention drawn toward closing. The wounds irrigated copious pulsatile lavage solution. I did inject locally with 60 cc of half percent Marcaine with epinephrine. The posterior capsule Rotators were repaired through drill holes holes in the posterior trochanter as a single layer with #2 Tycron suture. The IT band gluteal fascia then closed in 1 PDS suture in a running fashion with subcutaneous tissues then closed with 2 layers with a deep layer #1 Vicryl suture and subcutaneous tissues with 2-0 Dexon suture in a buried interrupted fashion the skin was closed with skin anjelica. Leg was then cleaned dried a sterile dressing composed Xeroform, 4 x 4's, ABD pad and foam tape was applied. The patient then transferred to the recovery room in stable condition. Patient tolerated procedure well and there were no complications. Gallo Cardenas, my physician assistant sales center manager, was present for the entire procedure. His assistance was required for appropriate positioning, prepping and draping, surgical exposure, performing the technical details of the operation, placement of the implants, closure of the wound, and placement of the sterile bandage. I attest to the content of the Intraoperative Record and any orders documented therein. Any exceptions are noted below.
[2019-11-16] MEDS: ACETAMINOPHEN 500 MG TAB PO SCH ×2 (13:50→21:32)
[2019-11-16] MEDS: CEFAZOLIN 1000MG 1,000 MG/7.5 ML SYR IV SCH ×2 (14:31→21:33)
[2019-11-16] MEDS ORDERED: TRANEXAMIC ACID / 0.7% NACL 1,000 MG/100 ML BAG IV SCH (15:00)
[2019-11-16] MEDS: ASCORBIC ACID 500 MG TAB PO SCH (17:57)
[2019-11-16] MEDS: FERROUS GLUCONATE 324 MG TAB PO SCH (17:57)
[2019-11-16] MEDS: ASPIRIN 81 MG ECTAB PO SCH (20:16)
[2019-11-16] MEDS ORDERED: SENNA 8.6 MG TAB PO SCH (21:00)
[2019-11-17] MEDS ORDERED: DC INTRASPINAL MORPHINE ONE (02:27)
[2019-11-17] MEDS ORDERED: HYDROmorphone INJ 0.5 MG/0.5 ML SYR IV PRN (02:27)
[2019-11-17] MEDS ORDERED: TRAMADOL HCL 50 MG TABLET PO PRN (02:27)
[2019-11-17 05:21] LABS: Basophils # (auto) 0.03 K/uL (0-0.2); Basophils % (auto) 0.5 %; Eosinophils # (auto) 0.22 K/uL (0-0.5); Eosinophils % (auto) 3.4 %; Hematocrit (blood only) 32.3 % (37-47); Hemoglobin 10.2 g/dL (12.0-16.0); Immature Granulocytes # (auto) 0.01 K/uL (0.00-0.02); Immature Granulocytes % (auto) 0.2 %; Lymphocytes # (auto) 0.69 K/uL (1.2-3.4); Lymphocytes % (auto) 10.8 %; Mean Corpuscular Hemoglobin 27.1 pg (25-34); Mean Corpuscular Hgb Conc 31.6 g/dL (32-36); Mean Corpuscular Volume 85.7 fL (80-100); Mean Platelet Volume 9.1 fL (7.4-10.4); Monocytes # (auto) 0.64 K/uL (0.11-0.59); Neutrophils # (auto) 4.79 K/uL (1.4-6.5); Neutrophils % (auto) 75.1 %; Platelet Count 166 K/uL (130-400); RDW Coefficient of Variation 14.6 % (11.5-14.5); RDW Standard Deviation 46.1 fL (36.4-46.3); Red Blood Count 3.77 M/uL (4.2-5.4); White Blood Count 6.38 K/uL (4.8-10.8)
[2019-11-17] MEDS: ACETAMINOPHEN 500 MG TAB PO SCH ×2 (05:43→13:06)
[2019-11-17 05:44] LABS: BUN Creatinine Ratio 19.4 (10-20); Calcium 7.5 mg/dl (8.5-10.1); Creatinine Clr Calc Pharmacy 47.1 ml/min; Est GFR (African American) 62.8; Est GFR (Non-African American) 54.1; Potassium 4.4 mmol/L (3.5-5.1)
[2019-11-17] MEDS: KETOROLAC TROMETHAMINE 15 MG/ML VIAL IV SCH ×3 (05:45→16:52)
[2019-11-17] MEDS ORDERED: LEVOTHYROXINE SODIUM 50 MCG TABLET PO SCH (06:30)
[2019-11-17] MEDS: FERROUS GLUCONATE 324 MG TAB PO SCH ×2 (07:19→16:52)
[2019-11-17] MEDS: ASCORBIC ACID 500 MG TAB PO SCH ×2 (07:19→16:52)
[2019-11-17] MEDS: ASPIRIN 81 MG ECTAB PO SCH (08:10)
[2019-11-17] MEDS: DOCUSATE SODIUM 100 MG CAP PO SCH (08:10)
[2019-11-17] MEDS: MULTIVITAMIN TAB PO SCH (08:11)
--- NOTE | 2019-11-17 16:16 | Progress Notes ---
DATE: 11/17/2019 SUBJECTIVE: A 69-year-old white female postop day 1 from a left hip replacement. She is doing well. She rates her pain at a 3. No chest pain or shortness of breath. Not feeling dizzy or lightheaded. She is interested in going home. OBJECTIVE: VITAL SIGNS: Temperature 36.6. Vital signs stable. GENERAL: Shows a pleasant, middle-aged female. She is lying in bed, looks comfortable. LUNGS: Clear to auscultation. HEART: Has regular rate and rhythm. ABDOMEN: Soft, nontender, nondistended. EXTREMITIES: Grossly neurovascularly intact except as follows: Examination of the left lower extremity reveals the leg lengths to be equal. Dressing is clean, dry and intact. Thigh is soft and supple. She is neurologically intact. LABORATORY DATA: Hemoglobin is 10.2. Hematocrit 32.3. Electrolytes are stable. ASSESSMENT: A 69-year-old white female postoperative day 1 from a left hip replacement, doing pretty well. Pain is controlled. Hip is located. She is neurologically intact. PLAN: 1. DVT prophylaxis including thigh-high TEDs, SCDs, and aspirin twice a day. 2. PT/OT. Weight bear as tolerated. Left total hip protocol. 3. Pain control, doing pretty well with current pain regimen. 4. Disposition: She is hoping to be discharged to home later this evening. She wants to go home without home health as she had her right hip replaced a year ago and I do not think she needs it.
--- NOTE | 2019-11-24 16:16 | Discharge Summary ---
Date of Service November 24, 2019 Admission HPI Per Admitting Provider Documented in the H & P Admission Exam (Per Admitting) Constitutional Documented in the H & P Discharge Data Consultations 11/17/19 08:00 Consult Case Management - Discharge Planning Routine Procedures Performed Operation Date: 11/16/19 07:00 Actual Procedures p Left Total Hip Arthroplasty--Uncemented(Left) - Yevgeniy Ellsworth MD Hospital Course (1) History of hip replacement: This patient is a 69 y/o female admitted on 11/16/19 and underwent total hip replacement. She tolerated the procedure well and there were no complications. Transferred to the PACU post op and later to the orthopedic floor for further care. She was given ancef for antibiotic prophylaxis. She was also given MED stockings, SCDs, and aspirin for DVT prophylaxis. Hemoglobin, hematocrit, and vital signs were monitored during her hospital stay and remained stable. Did not require any blood transfusions. There were no complications during her hospital stay. By post op day #1 the patient was tolerating a regular diet, pain was reasonably controlled with oral pain medicine, and she was participating in physical therapy. On post op day #1 the patient was discharged home. She was given printed discharge instructions including prescriptions for extra strength tylenol, aspirin, iron supplement, and tramadol. Continue physical therapy, weight bearing as tolerated. Total hip precautions. Continue MED stockings. Follow up approximately 2 weeks post op or sooner if there are problems or concerns. Coding Level of Care Code None Diagnoses History of hip replacement Z96.649
== END 2019-11-17 17:37 | disposition home or self-care (01) ==
LOC: ASU 05:02 → 3E 05:02